=== PATIENT | male | born 1995 | race Caucasian/White ===

== ENCOUNTER 2017-05-02 08:25 | Emergency (ER) | payer SELFPAY ==
[~2017-05-02] VITALS: Ht 170.2 cm; Wt 131.8 kg
[~2017-05-02 08:25] MED LIST: AMOXICILLIN 8751 TAB PO; NO HOME MEDICATIONS; ZITHROMAX 250M250 MG PO
[2017-05-02 08:28] VITALS: BP 145/80; TEMP 99
[2017-05-02] MEDS ORDERED: ATARAX 25MG25 MG/TAB PO (08:47)
[2017-05-02] MEDS ORDERED: PREDNISONE20 MG PO (08:47)
[2017-05-02 09:08] VITALS: PULSE 88
== END 2017-05-02 09:16 | disposition home or self-care (01) ==
LOC: COL.ER 08:25
DX: L23.7 Allergic contact dermatitis due to plants, except food (principal)

== ENCOUNTER 2019-01-02 22:41 | Emergency (ER) | payer SELFPAY ==
[~2019-01-02] VITALS: Ht 172.7 cm; Wt 131.8 kg
[~2019-01-02 22:41] MED LIST changes: +ATARAX 25MG25 MG/TAB PO; +PREDNISONE20 MG PO
[2019-01-02 22:45] VITALS: BP 156/89; PULSE 104; TEMP 97.7
== END 2019-01-03 00:10 | disposition left against medical advice (07) ==
LOC: COL.ER 22:41
DX: R05 Cough (principal); R09.81 Nasal congestion; R53.83 Other fatigue

== ENCOUNTER 2019-04-26 10:16 | Emergency (ER) | payer SELFPAY ==
[~2019-04-26] VITALS: Ht 172.7 cm; Wt 131.8 kg
[2019-04-26 10:22] VITALS: BP 156/90; TEMP 97.6
[2019-04-26 11:20] VITALS: PULSE 65
== END 2019-04-26 11:24 | disposition home or self-care (01) ==
LOC: COL.ER 10:16
DX: S83.91XA Sprain of unspecified site of right knee, initial encounter (principal); I10 Essential (primary) hypertension; F17.220 Nicotine dependence, chewing tobacco, uncomplicated; W15.XXXA Fall from cliff, initial encounter

== ENCOUNTER 2019-07-14 15:14 | Emergency (ER) | payer SELFPAY ==
[~2019-07-14] VITALS: Ht 172.7 cm; Wt 131.8 kg
[2019-07-14 15:23] VITALS: BP 127/7
[2019-07-14] MEDS ORDERED: DOXYCYCLINE 10100 MG PO (16:54)
[2019-07-14 17:10] VITALS: PULSE 91; TEMP 98.2
== END 2019-07-14 17:15 | disposition home or self-care (01) ==
LOC: COL.ER 15:14
DX: L60.0 Ingrowing nail (principal); L08.9 Local infection of the skin and subcutaneous tissue, unspecified

== ENCOUNTER 2020-04-29 16:20 | Emergency (ER) | payer SELFPAY ==
[~2020-04-29] VITALS: Ht 170.2 cm; Wt 143.2 kg
[~2020-04-29 16:20] MED LIST changes: +DOXYCYCLINE 10100 MG PO
[2020-04-29 16:26] VITALS: TEMP 98.2
[2020-04-29] MEDS ORDERED: CEPHALEXIN500 M1 PO (17:08)
[2020-04-29 17:20] VITALS: BP 116/77; PULSE 86
== END 2020-04-29 17:24 | disposition home or self-care (01) ==
LOC: COL.ER 16:20
DX: S61.411A Laceration without foreign body of right hand, initial encounter (principal); Z23 Encounter for immunization; W26.8XXA Contact with other sharp object(s), not elsewhere classified, initial encounter; Y92.830 Public park as the place of occurrence of the external cause

== ENCOUNTER 2020-11-21 21:33 | Emergency (ER) | payer SELFPAY ==
[~2020-11-21] VITALS: Ht 170.2 cm; Wt 140.9 kg
[~2020-11-21 21:33] MED LIST changes: +CEPHALEXIN500 M1 PO
[2020-11-21 21:49] VITALS: TEMP 97.7
[2020-11-22 00:50] VITALS: BP 147/95; PULSE 85
== END 2020-11-22 00:50 | disposition home or self-care (01) ==
LOC: COL.ER 21:33
DX: J06.9 Acute upper respiratory infection, unspecified (principal); Z20.822 Contact with and (suspected) exposure to COVID-19; Z87.891 Personal history of nicotine dependence
CPT/HCPCS: J1885

== ENCOUNTER 2021-09-25 11:59 | Emergency (ER) | payer OTHER ==
[~2021-09-25] VITALS: Ht 182.9 cm; Wt 136.4 kg
[2021-09-25 12:47] VITALS: BP 130/67
[2021-09-25 15:00] VITALS: PULSE 116; TEMP 98.7
== END 2021-09-25 12:05 | disposition home or self-care (01) ==
LOC: COL.ER 11:59
DX: B34.9 Viral infection, unspecified (principal); Z87.891 Personal history of nicotine dependence; Z20.822 Contact with and (suspected) exposure to COVID-19